=== PATIENT | female | born 1950 | race Caucasian/White ===

== ENCOUNTER 2019-04-07 06:09 | Day surgery (SDC) ==
[2019-04-07] MEDS: TETRACAINE 0.5% UNIT-DOSE OP PRN ×2 (06:20→07:42)
[2019-04-07] MEDS: BETADINE OPTH PREP OP PRN ×2 (06:21→07:45)
[2019-04-07] MEDS: CYCLOGYL 2% OPTH OP PRN ×3 (06:22→06:32)
[2019-04-07 07:28] VITALS: TEMP 98.5
[2019-04-07] MEDS ORDERED: ZOFRAN 4 MG/2 ML IVP ONE (07:29)
[2019-04-07] MEDS ORDERED: BSS WITH EPINEPHRINE OP ONE (07:29)
[2019-04-07] MEDS ORDERED: LIDOCAINE 1%/PHENYLEPHRINE 1.5% BSS (SURGERY) INTRAOCULA ONE (07:29)
[2019-04-07] MEDS ORDERED: DEX-MOXI-KETOR OPTH INJ 1/0.5/0.4 MG/ML IO ONE (07:29)
[2019-04-07] MEDS ORDERED: ZOFRAN 4 MG/2 ML ONE (07:48)
[2019-04-07] MEDS ORDERED: VERSED ONE (07:48)
[2019-04-07] MEDS ORDERED: SUBLIMAZE ONE (07:48)
[2019-04-09 15:33] VITALS: BP 128/64
== END 2019-04-07 08:40 | disposition home or self-care (01) ==
LOC: SURG 06:09
PROVIDERS: ATTEND Ophthalmology
DX: H25.811 Combined forms of age-related cataract, right eye (principal)